=== PATIENT | female | born 1990 | race Caucasian/White ===

== ENCOUNTER 2019-09-23 09:58 | Outpatient (CLI) | payer OTHER, SELFPAY ==
--- NOTE | ~2019-09-23 | US_ITS ---
EXAMINATION: US OB <= 14 weeks fetus DATE: 09/23/2019 10:50 INDICATION: Left sided pelvic cramping, first trimester TECHNIQUE: Real-time pelvic transabdominal and transvaginal ultrasound was performed. COMPARISON: None. FINDINGS: The uterus measures 6.8 x 3.1 x 3.9 cm. No intrauterine gestational sac is identified. The endometrial complex measures 8 mm. The right ovary measures 2.5 x 1.6 x 2.2 cm. The left ovary measu res 2.5 x 1.7 x 2.3 cm. There is normal vascular flow in the ovaries. There is no free fluid in the p viki. IMPRESSION: 1. of unknown location. Although no intrauterine gestational sac is seen, this may be due t o early gestation. If the patient is clinically stable, recommend followup with serial beta-hCG and u ltrasound. Reviewed, dictated and finalized at location A. IMPRESSION: 1. of unknown location. Although no intrauterine gestational sac is s een, this may be due to early gestation. If the patient is clinically stable, r ecommend followup with serial beta-hCG and ultrasound.
== END 2019-09-23 09:59 | disposition home or self-care (01) ==
LOC: ANHIMG 10:04
PROVIDERS: PCP Family Medicine; Visit Provider Obstetrics & Gynecology
DX: O26.899 Other specified pregnancy related conditions, unspecified trimester (principal); Z3A.00 Weeks of gestation of pregnancy not specified
CPT/HCPCS: 76801

== ENCOUNTER → 2019-12-08 15:49 | Outpatient (CLI) | payer OTHER, SELFPAY ==
--- NOTE | ~2019-12-08 | US_ITS ---
EXAMINATION: US OB transvaginal EXAM DATE: 12/08/2019 16:13 INDICATION: History of SAB subarachnoid bleed. Dating. 1st trimester. TECHNIQUE: Pelvic obstetrical transvaginal sonogram was performed by a technologist. There are mult iple grayscale and Doppler images available for interpretation. Comparison is made to prior examinati on from 09/23/2019. FINDINGS: Uterus measures 8.4 x 4.6 x 5.2 cm. There is intrauterine gestation sac. pole with heart rate confirmed at 127 beats per minute. The 7 mm crown-rump length corresponds to estimated ge stational age by ultrasound of 6 weeks 4 days, estimated date of confinement 07/29/2020. Yolk sac is identified. There is no sonographic evidence of subchorionic hemorrhage. Right ovary probably has the corpus luteal cyst. Both are morphologically normal. IMPRESSION: Live intrauterine gestation, age by ultrasound 6 weeks 4 days. Reviewed, dictated and finalized at location A.
== END ==
PROVIDERS: PCP Family Medicine; Visit Provider Obstetrics & Gynecology
DX: O26.21 Pregnancy care for patient with recurrent pregnancy loss, first trimester (principal); Z3A.01 Less than 8 weeks gestation of pregnancy
CPT/HCPCS: 76817

== ENCOUNTER → 2019-12-24 15:24 | Outpatient (CLI) | payer OTHER, SELFPAY ==
--- NOTE | ~2019-12-24 | US_ITS ---
EXAMINATION: US OB <= 14 weeks fetus DATE: 12/24/2019 15:49 INDICATION: Establish dating of during first trimester. TECHNIQUE: Real-time pelvic ultrasound utilizing transabdominal probe was performed. The [facility] radiologist was not present for the study. COMPARISON: 12/08/2019 FINDINGS: The uterus measures 10.5 x 5.1 x 7.3 cm. There is an intrauterine gestational sac. A yolk sac and fe jluis pole are identified. The crown rump length measures 2.1 cm, which correlates with an estimated ge stational age of 8 weeks and 5 days. heart motion is identified measuring 164 beats per minute (bpm) by M-mode Doppler. The right ovary measures 3.9 x 2.2 x 3.2 cm. The left ovary measures 2.2 x 1.9 x 3.5 cm. There is no free fluid in the pelvis. IMPRESSION: 1. Single living fetus with heart rate of 164 bpm. 2. [place]-rump length of 2.1 cm which is concordant within 1 day of previously estimated gestational a ge of 8 weeks and 6 days with estimated date of delivery (CELENA) of 07/30/2020. Reviewed, dictated and finalized at location A. 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 Single living fetus with heart rate of 164 bpm. 2. [place]-rump length of 2.1 cm which is concordant within 1 day of previously e stimated gestational age of 8 weeks and 6 days with estimated date of delivery (CELENA) of 07/30/2020.
== END ==
PROVIDERS: Visit Provider Obstetrics & Gynecology
DX: Z32.01 Encounter for pregnancy test, result positive (principal); Z3A.08 8 weeks gestation of pregnancy
CPT/HCPCS: 76801

== ENCOUNTER → 2020-02-23 10:12 | Outpatient (CLI) | payer OTHER, SELFPAY ==
--- NOTE | ~2020-02-23 | US_ITS ---
EXAMINATION: US OB >= 14 weeks Fetus DATE: 02/23/2020 10:59 INDICATION: survey TECHNIQUE: Multiple obstetric sonographic images performed. FINDINGS: Comparison to multiple prior studies sequentially, with oldest reviewed study dated 2019. There is a single living fetus in variable presentation. The placenta is covering the cervical os. P lacenta is anterior. Amniotic fluid volume is subjectively normal. cardiac activity and movement is noted with a heart rate of 150 beats per minute. The following anatomy was identified as normal: 3 vessel cord cord insertion kidneys urinary bladder stomach spine diaphragm ventricles cisterna magna cerebellum 4 chamber heart not adequately visualized. The following biometric data were obtained: BPD: 41mm corresponds to gestational age 18 weeks 3 days. Head circumference: 158 mm corresponds to gestational age 18 weeks 4 days. Abdominal circumference: 126 mm corresponds to gestational age 18 weeks 1 days. Femur length: 25 mm corresponds to gestational age 17 weeks 5 days. Head circumference to abdominal circumference ratio: 1.25 (normal range for expected gestational age is 1.08-1.27). Estimated weight: 220 grams +/- 33 grams using Hadlock method. IMPRESSION: 1: Single living intrauterine with an estimated gestational age of 17weeks 4days by initial ultrasound measurements, with an EDC of 07/29/2020 in variable presentation. 2. survey limited for evaluation of four-chamber heart. Otherwise, unremarkable survey. 3: Placenta previa. Recommend attention to placenta on subsequent examinations. Reviewed, dictated and finalized at location A. FUELER IMPRESSION: 1: Single living intrauterine with an estimated gestational age of 17 weeks 4days by initial ultrasound measurements, with an EDC of 07/29/2020 in fernando iable presentation. 2. survey limited for evaluation of four-chamber heart. Otherwise, unrem arkable survey. 3: Placenta previa. Recommend attention to placenta on subsequent examinations.
== END ==
PROVIDERS: Visit Provider Obstetrics & Gynecology
DX: Z34.92 Encounter for supervision of normal pregnancy, unspecified, second trimester (principal); Z3A.17 17 weeks gestation of pregnancy
CPT/HCPCS: 76805

== ENCOUNTER 2020-03-25 15:22 | Outpatient (CLI) | payer OTHER, SELFPAY ==
--- NOTE | ~2020-03-25 | US_ITS ---
US OB limited 03/25/2020 15:45 Indication: Placenta previa. Incomplete survey previously. Procedure: High-resolution transabdominal limited obstetrical ultrasound Comparison: Ultrasound dated 02/23/2020 Findings: There is a single living intrauterine in vertex presentation. heart rate is 165 bpm. Placenta is anterior without previa. Placental margin is 6.1 cm to the cervix. Amniotic flu id is subjectively normal. Limited survey demonstrates a normal four-chamber heart and ventricular ou tflow tracts. Impression: 1: Single living intrauterine in vertex presentation. 2: Unremarkable limited survey. Reviewed, dictated and finalized at location A. [employer] Impression: 1: Single living intrauterine in vertex presentation. 2: Unremarkable limited survey.
== END 2020-03-25 15:23 ==
PROVIDERS: Visit Provider Obstetrics & Gynecology
DX: O44.40 Low lying placenta NOS or without hemorrhage, unspecified trimester (principal); Z3A.00 Weeks of gestation of pregnancy not specified
CPT/HCPCS: 76815

== ENCOUNTER → 2020-06-24 13:17 | Outpatient (CLI) | payer OTHER, SELFPAY ==
--- NOTE | ~2020-06-24 | US_ITS ---
EXAMINATION: US OB follow up EXAM DATE: 06/24/2020 13:52 INDICATION: Size greater than dates. 3rd trimester. TECHNIQUE: Pelvic obstetrical transabdominal sonogram was performed by a technologist. There are mu ltiple grayscale and Doppler images available for interpretation. FINDINGS: There is a single fetus identified in vertex presentation with a heart rate of 133 beats pe r minute. The placenta is located in the anterior position. There is no sonographic evidence of retr oplacental hemorrhage identified. The amniotic fluid index is 13.7 centimeters, which is normal. BIOMETRIC DATA: Biparietal diameter (BPD): 9.4 cm ----------------> 38 weeks 3 days. Head circumference (HC): 34.2 cm ----------------> 39 weeks 3 days. Abdominal circumference (AC): 33.9 cm ----------> 37 weeks 5 days. Femur length (FL): 6.9 cm --------------------------> 35 weeks 2 days. These measurements are concordant. HC/AC ratio is 1.01 (The 5th -- 95th percentile range is 0.90-1.05. Estimated weight is 3206 g +/- 481 g. This is the 97th percentile when the currently reported clinical gestation age 35 weeks 0 days, clinical estimated date of delivery (CELENA-OPE) 07/29/2020 is us ed. estimated gestational age based on measurements from this exam is 37 weeks 5 days, with an estimated date of delivery (CELENA-AUA) 07/10/2020. IMPRESSION: 1. Single fetus in vertex presentation with heart rate 133 beats per minute. 2. Estimated weight of 3206 grams, 97th percentile using the currently reported clinical gesta tion age of 35 weeks 0 days, CELENA(OPE) 07/29/2020. Concordant measurements; large for gestational age. 3. Normal CHARMAINE 13.7 cm. Reviewed, dictated and finalized at location B. IMPRESSION: 1. Single fetus in vertex presentation with heart rate 133 beats per minute. 2. Estimated weight of 3206 grams, 97th percentile using the currently r eported clinical gestation age of 35 weeks 0 days, CELENA(OPE) 07/29/2020. [place] ant measurements; large for gestational age. 3. Normal CHARMAINE 13.7 cm.
== END ==
PROVIDERS: Visit Provider Obstetrics & Gynecology
DX: O36.63X0 Maternal care for excessive fetal growth, third trimester, not applicable or unspecified (principal); Z3A.35 35 weeks gestation of pregnancy
CPT/HCPCS: 76816

== ENCOUNTER 2020-07-11 10:45 | Emergency (ER) | payer OTHER, SELFPAY ==
[2020-07-11 10:53] VITALS: BP 155/96; PULSE 102; RESP 18; TEMP 36.2; O2SAT 99
--- NOTE | 2020-07-11 11:29 | ED.GENADULT ---
HPI - General Adult General Chief complaint: Upper Respiratory Infection Stated complaint: Sore Throat Time Seen by Provider: 07/11/20 11:29 Source: patient and RN notes reviewed Mode of arrival: ambulatory Limitations: no limitations History of Present Illness HPI narrative: 30-year-old 37 weeks gestation female presents with complaints of sore throat, cough, bilateral otalgia, and upper respiratory infection for the past 6 days. Traci reports increasing symptoms daily and awakening today with left eye matted together. Robitussin, cough drops, and nasal spray without relief. No high fevers, drooling, neck or throat swelling. Pain is bilateral. Hurts to swallow. Exacerbation factors consist of eating and drinking. Coughing without chest congestion. Rhinorrhea and nasal congestion. No voice change. No nausea, vomiting, or abdominal pain. Tolerating liquids well. Denies chills, dyspnea, difficulty swallowing, jaw pain, dental pain, facial pain, foreign body sensation, and rash. Remains active. The patient reports she was diagnosed with COVID-08 January 2020. The patient reports she received 2 Pfizer COVID-19 vaccines. The patient reports she tested NEGATIVE for COVID-19 on June,. The patient reports she is not waiting for the results of a COVID-19 lab test. The patient reports she do not have any loss of taste or smell, and diarrhea. Denies recent traveling. Denies concerns for COVID-19 or exposures. At this time, patient is not suspected of having COVID-19. Complaints of left eye redness, irritation, some burning, and itching upon awaken this morning. Slightly matted. No pain. No copious drainage. Exacerbating factors is opening eye and light. Relieving factors is closing eyes. Wears glasses. No blurred vision, double vision, sensation of foreign body, or pain of eye with movement. Some parts of this dictation were generated by voice recognition software and may contain typographical and/or grammatical inaccuracies. Related Data Home Medications Medication Instructions Recorded Confirmed prenat.vits,kaylin,[id number] 1 tablet PO HS 07/05/20 07/11/20 [ #2] Allergies Allergy/AdvReac Type Severity Reaction Status Date / Time No Known Allergies Allergy Unknown Verified 07/05/20 14:27 Review of Systems Review of Systems: Narrative: CONSTITUTIONAL: Denies fever, chills, sweats. EYES: Denies visual changes, discharge. Complaints of left eye redness, irritation, matted, and itching ENT: Complains of rhinorrhea, otalgia, sore throat, congestion. CARDIOVASCULAR: Denies chest pain, palpitations, edema. RESPIRATORY: Denies dyspnea, wheezing. Complains of cough, intermittent productive green phlegm. GASTROINTESTINAL: Denies abdominal pain, nausea, vomiting, diarrhea. GENITOURINARY: Denies dysuria, hematuria, abnormal discharge. SKIN: Denies rash or itching. MUSCULOSKELETAL: Denies acute back pain, joint pain, or myalgia. NEUROLOGIC: Denies numbness or focal weakness. PSYCHIATRIC: Denies anxiety or depression. All systems reviewed & are unremarkable except as noted in HPI and below. [facility] Past Medical History Medical History (Updated 07/18/20 @ 15:37 by TERESE Roberto) COVID-19 12/2019 Ex-smoker for more than 1 year Family history of cardiac disorder in father Situational anxiety Umbilical hernia Surgical History Surgical History (Updated 07/11/20 @ 11:53 by TERESE Roberto) History of cholecystectomy History of hernia surgery Family History Family History Father Acute myocardial infarction Mother Breast cancer in female Grandparent Breast cancer in female Acute myocardial infarction Cancer Diabetes mellitus Other Patient's father is Social History Social History (Updated 07/11/20 @ 11:54 by TERESE Roberto) Smoking status: Former smoker Tobacco
[2020-07-11 12:11] VITALS: BP 137/87
== END 2020-07-11 12:06 | disposition home or self-care (01) ==
PROVIDERS: Emergency Provider Nurse Practitioner Family; PCP Family Medicine
DX: O99.513 Diseases of the respiratory system complicating pregnancy, third trimester (principal); Z3A.37 37 weeks gestation of pregnancy; J00 Acute nasopharyngitis [common cold]; J01.90 Acute sinusitis, unspecified; O99.891 Other specified diseases and conditions complicating pregnancy; H10.32 Unspecified acute conjunctivitis, left eye; Z20.822 Contact with and (suspected) exposure to COVID-19; Z87.891 Personal history of nicotine dependence; Z86.16 Personal history of COVID-19
CPT/HCPCS: 87081; 87880; 99213; G0463

== ENCOUNTER 2020-07-21 05:59 | Inpatient (IN) | payer OTHER, SELFPAY ==
[2020-07-21] VITALS (187 sets, daily range): BP systolic 85–159; BP diastolic 52–106; PULSE 73–135; TEMP 36–36.7; O2SAT 98–100
[2020-07-21] MEDS: LACTATED RINGERS 1,000 ML 125 ML IV CONT ×4 (06:40→20:09)
--- NOTE | 2020-07-21 06:41 | WPDANESEPPF ---
Anes - Initial Pre Proc Eval Procedure: labor epidural Date/Time: 07/21/20 06:41 Surgeon: Mohit Gaona MD Pre Op Diagnosis: labor pain Pre Op Diagnosis: IOL Patient Data Age: 30 Gender: F Height: Weight: Last Vital Signs Pulse 112 H 07/21/20 06:30 BP 134/81 07/21/20 06:30 Allergies Allergy/AdvReac Type Severity Reaction Status Date / Time No Known Allergies Allergy Unknown Verified 07/05/20 14:27 Home Medications Medication Instructions Recorded Confirmed Type prenat.vits,kaylin,[id number] 1 tablet PO HS 07/05/20 07/11/20 History [ #2] cetirizine [Zyrtec] 10 mg PO DAILY 60 Days #60 tablet 07/11/20 Rx polymyxin B sulf-trimethoprim 1 drop LEFT EYE QID 7 Days #10 ml 07/11/20 Rx Patient hx anesthesia problems: none Family hx anesthesia problems: none PMFSH Past Medical History Medical History (Updated 07/19/20 @ 00:00 by Brannon Gudino) COVID-19 12/2019 Ex-smoker for more than 1 year Family history of cardiac disorder in father Situational anxiety Umbilical hernia Surgical History Surgical History (Updated 07/11/20 @ 11:53 by TERESE Roberto) History of cholecystectomy History of hernia surgery Family History Family History Father Acute myocardial infarction Mother Breast cancer in female Grandparent Breast cancer in female Acute myocardial infarction Cancer Diabetes mellitus Other Patient's father is Social History Social History (Updated 07/11/20 @ 11:54 by TERESE Roberto) Smoking status: Former smoker Tobacco type: cigarettes Second hand tobacco smoke exposure: No Smoking end date: 02/19/18 Alcohol intake: current Substance use: never Gender identity (if verbalized by the patient): Female Spiritual care concerns: No Anes - Eval Final PreProcedure Day of Procedure 07/21/20 06:41 Patient weight: morbidly obese ASA classification: III Anesthesia type and monitoring: regional epidural Informed Consent: The patient's anesthetic plan and its attendant risks and benefits were discussed with the patient/family/POA. Questions were solicited and answers provided to the satisfaction of the patient/family/POA.
[2020-07-21] MEDS: OXYTOCIN 30 UNITS/NS 500 ML 30 UNITS/500 ML BAG IV CONT (06:50)
[2020-07-21 07:38] LABS: Basophils Percent Auto 0.2 % (0.2-1.2); Eosinophils Absolute Auto 0.1 K/mm3 (0-0.3); Eosinophils Percent Auto 0.9 % (0-4.4); Immature Granulocyte Absolute 0.12 K/mm3 (0.00-0.031); Lymphocytes Absolute Auto 1.85 K/mm3 (0.9-3.2); Lymphocytes Percent Auto 14.8 % (18.3-44.2); Mean Corpuscular HGB Conc 33.3 g/dl (32-36); Mean Corpuscular Volume 90.1 fl (80-100); Mean Platelet Volume 11.5 fl (7.4-10.4); Monocytes Absolute Auto 0.8 K/mm3 (0.1-0.6); Monocytes Percent Auto 6.3 % (2.6-8.5); Neutrophils Absolute Auto 9.6 K/mm3 (1.3-6.7); Neutrophils Percent Auto 76.8 % (45.5-73.1); Platelet Count Result 219 k/mm3 (150-375); Red Blood Count 4.33 M/mm3 (4.2-5.4); Red Cell Distribution Width 12.6 % (11.5-14.5); White Blood Count 12.5 K/mm3 (4.5-10.0)
--- NOTE | 2020-07-21 08:23 | P.HP_ITS ---
Obstetrics - Admit Note Admission Note: record reviewed. No pertinent additions to the history and/or any subsequent changes in the physical findings that are not consistent with the expected course of the were found. AROm clear fluid 1/-2 Additions to the history and/or subsequent changes in the physical findings emilee logan. None.
[2020-07-21 18:23] LABS: Rapid Plasma Reagin Non-Reactive (NonReactive)
[2020-07-22] VITALS (57 sets, daily range): BP systolic 85–146; BP diastolic 58–110; PULSE 74–144; RESP 17–20; TEMP 36.5–37.2; O2SAT 86–100
[2020-07-22] MEDS: AMPICILLIN 2 GM/NS 100 ML 2 GM/100 ML BAG IVPB (02:24)
--- NOTE | 2020-07-22 04:04 | PM.OBPRVD ---
OB - Delivery Note Procedure Delivery date: 07/22/20 Procedure: events: Labor Induction Intrapartal events: None Induction method: AROM and per pitocin protocol Delivery monitor: external FHT, external uterine, internal FHT and internal uterine Route of delivery: Laceration Description: Vaginal - 2nd Degree Delivery repair: vicryl Specimen: No Quantitative Blood Loss (ml): 180 Anesthesia type: Epidural Disposition: floor Baby Date of : 07/22/20 Time of : 03:29 Weeks of gestation at delivery: 39 gender: Male Weight (pounds): 7 Weight (ounces): 15 presentation: vertex position: Left Occiput Anterior Placenta delivery description: Spontaneous cord vessel description: 3 Vessels score one minute: 9 score five minutes: 9
[2020-07-22] MEDS: OXYTOCIN 30 UNITS/NS 500 ML 30 UNITS/500 ML BAG 125 UNITS IV CONT (04:05)
--- NOTE | 2020-07-22 04:07 | PM.OBDSVD ---
DS: Admitting Diagnosis Admitting Diagnosis Admitting Diagnosis: induction of labor DS: Discharge Diagnosis Discharge Diagnosis (1) (normal spontaneous vaginal delivery): Code(s): O80 - Encounter for full-term uncomplicated delivery Status: Acute OB - DS: Summary OB Procedures : None OB Procedures Intrapartum: Spontaneous Vag Delivery OB Procedures: : None Time Spent with Patient Time attestation: Total time spent providing and/or coordinating discharge services: DS: Data Data Completed and Pending Labs on day of discharge: Labs from last 24 hours 07/21/20 07/21/20 07/21/20 07:00 07:00 07:00 WBC 12.5 H RBC 4.33 Hgb 13.0 Hct 39.0 MCV 90.1 MCH 30.0 MCHC 33.3 RDW 12.6 Plt Count 219 MPV 11.5 H Immature Gran % (Auto) 1.0 H Neut % (Auto) 76.8 H Lymph % (Auto) 14.8 L [place] % (Auto) 6.3 Eos % (Auto) 0.9 Baso % (Auto) 0.2 Lymph # (Auto) 1.85 [place] # (Auto) 0.8 H Eos # (Auto) 0.1 Baso # (Auto) 0.0 Abs Immat Gran (auto) 0.12 H Absolute Neuts (auto) 9.6 H Absolute Nucleated RBC 0.0 Nucleated RBC % 0.0 RPR Non-reactive Blood Type A Positive Antibody Screen Negative Discharge Plan Discharge Attending physician on discharge: Mohit Gaona Discharging Clinician: Mohit Gaona Patient Disposition: Home, Self-Care Activity: may shower Diet: as tolerated Discharge Instructions: Education: Mom and Baby Guide and Preeclampsia Handout Given to: Mother Follow-Up: Call your delivering provider's office for an appointment to be seen in: 6 Weeks Mom and baby should come to the [facility] for the follow-up appointment. Appointment Date/Time: July 26, 2020 at 9:00 am What to expect at your follow-up visit: Physical Assessment Call [phone] if you are unable to keep your appointment time. BREAST CARE: * Wear a snug supportive bra. * For engorgement discomfort: Breast Feeding: * Apply warm moist washcloths * Express milk as needed to relieve engorgement * Wear loose clothing Bottle Feeding: * May apply ice packs * For sore nipples: * Identify correct latch-on * Apply warm moist washcloths before and after nursing * Air dry nipples after nursing * May apply Lansinoh cream to nipples EPISIOTOMY/PERINEAL CARE: * Until bleeding stops, use your kimberly bottle after urinating * Change your pad frequently throughout the day * You may take sitz baths several times a day (fill your bathtub with warm water and soak for 20 minutes.) Do NOT bathe in the water * No tub baths until seen by your physician - You may shower ACTIVITY: * Rest as much as possible. * Do not exercise or lift anything heavier than your baby (such as laundry or other children.) * Avoid stairs or driving as much as possible. * Do not put anything into the vagina. No douching, tampons, or sexual activity until seen by physician. NOTIFY PHYSICIAN IF YOU HAVE ANY QUESTIONS OR IF ANY OF THE FOLLOWING SYMPTOMS OCCUR: * If your episiotomy becomes red, swollen, or more painful than what you have experienced in the hospital. * If your vaginal bleeding becomes foul smelling. * If your vaginal bleeding becomes more heavy than a period or if your bleeding changes from pink to bright red. However, you may pass an occasional walnut-sized clot once or twice for the first week . * If you experience a sharp, shooting pain in you calves. * If you discover a hard, reddened area on your breast or if you experience flu-like symptoms. DIET: * Eat regular, well-balanced meals. * Drink plenty of fluids daily. If , drink to thirst. Stand Alone Forms: General Discharge Information Follow-up/Referrals: Mohit Gaona MD [Physician] - Discharge Medications: Continued polymyxin B sulf-trimethoprim 10
[2020-07-22] MEDS: IBUPROFEN 600 MG TABLET PO ×3 (06:30→19:26)
[2020-07-22] MEDS: WITCH HAZEL 40 PADS 1 PAD TOPICAL (06:31)
--- NOTE | 2020-07-22 09:00 | PC.NURSE ---
Mother called out for assist with feeding. Mother reports infant is sleepy and making weak attempts to latch. He was latched and fed causing mother nipple pain. Left nipple has blisters and bleeding is noted. Nipple care reviewed of lanolin after feedings, warm compresses and gel pads as needed. Reviewed feeding cues, frequencies, duration of feedings, feeding elimination flow sheet, and signs of adequate intake. Demonstrated stimulation techniques to wake for feeding. Assisted with to breast. Reviewed positioning/alignment in cross cradle, holding breast in ?U? hold and guided asymmetrical latch on. Several attempts made is unable to draw nipple in deeply to latch correctly. Offered and explained the nipple shield, mother is willing to attempt latch using shield. Discussed nipple shield precautions and possible complications. Instructions given on application and cleaning of shield. . Patient able to return demonstration on proper application of shield. Discussed the need to initiate pumping if continues to nurse with the shield. Patient verbalizes understanding. With shield in place was able to latch and draw nipple in. struggles to maintain deep latch. Infant nursed eagerly with bursts of steady draws and occasional swallowing noted. Reviewed signs of a correct latch, effective nursing and suck swallow ratio. would slip to shallow latch, mother reports tenderness. Demonstrated how to adjust latch more deeply while feeding. Mother reports she can feel change in latch and has no tenderness. Suggested mother stimulate while feeding to increase stimulate, increase intake and to assist with maintaining deep latch. Mother will begin supplementation after this feeding and will pump after each feeding using the nipple shield or each attempt.
--- NOTE | 2020-07-22 12:30 | PC.NURSE ---
Mother called out for assist with feeding. Demonstrated stimulation techniques to wake for feeding. Assisted with to breast using nipple shield. Reviewed positioning/alignment in cross cradle, holding breast in ?U? hold and guided asymmetrical latch on. Several attempts made infant is unable to draw nipple in deeply to latch correctly. With shield in place infant was able to latch and draw nipple in. Infant struggles to maintain deep latch. Infant nursed eagerly with bursts of steady draws and occasional swallowing noted followed with long pausing. Reviewed signs of a correct latch, effective nursing and suck swallow ratio. Infant would slip to shallow latch, mother reports tenderness. Demonstrated how to adjust latch more deeply while feeding. Mother reports she can feel change in latch and has no tenderness. Suggested mother stimulate while feeding to increase stimulate, increase intake and to assist with maintaining deep latch. Mother will supplementation after this feeding and will pump after each feeding using the nipple shield or each attempt.
[2020-07-22] MEDS: ACETAMINOPHEN 325 MG TABLET 650 MG PO (17:51)
[2020-07-23] MEDS: IBUPROFEN 600 MG TABLET PO ×3 (02:00→20:45)
[2020-07-23 05:22] LABS: Hemoglobin 10.8 g/dL (12.0-15.0)
[2020-07-23 06:45] VITALS: BP 133/96; PULSE 100; RESP 18; TEMP 36.5
[2020-07-23] MEDS: DOCUSATE SODIUM 100 MG CAPSULE PO (06:49)
[2020-07-23] MEDS: MULTIVIT/MIN/PREN/FOL AC/IRON TABLET 1 TAB PO (06:49)
--- NOTE | 2020-07-23 10:31 | WPDANLDPN2 ---
Anes-Prog Note L&D Date/Time: 07/23/20 10:31 Comfortable throughout: labor and delivery Neuraxial method: epidural Epidural/Spinal procedure site: clean & non-tender Neuro status: Neuro function grossly intact. Cardiovascular status: normal Respiratory status: normal Airway patency: baseline Mental status: baseline Post-Op hydration status: normal Vital Signs: Last Vital Signs Temp 36.5 C 07/23/20 06:45 Pulse 100 07/23/20 06:45 Resp 18 07/23/20 06:45 BP 133/96 H 07/23/20 06:45 Pulse Ox 100 07/22/20 16:00 Pain score (VAS): 02/28 Post-procedural complaints: none Patient feedback: Patient satisfied with anesthetic care.
[2020-07-23] MEDS: ACETAMINOPHEN 325 MG TABLET 650 MG PO (13:39)
[2020-07-23 19:15] VITALS: BP 130/70; PULSE 95; RESP 17; TEMP 36.9
[2020-07-24] MEDS: ACETAMINOPHEN 325 MG TABLET 650 MG PO (05:47)
[2020-07-24] MEDS: IBUPROFEN 600 MG TABLET PO (05:47)
[2020-07-24 07:20] VITALS: BP 133/90; PULSE 96; RESP 20; TEMP 36.4
--- NOTE | 2020-07-24 09:00 | PC.NURSE ---
Patient viewed the discharge video Mother & Baby Care, The First Two Weeks . Patient was given the opportunity and encouraged to ask questions. Patient verbalized understanding of information shared and has been given the mother/baby guide for home reference.
[2020-07-24] MEDS: MULTIVIT/MIN/PREN/FOL AC/IRON TABLET 1 TAB PO (09:21)
--- NOTE | 2020-07-24 12:31 | P.PNOB_ITS ---
OB - PN: Subj Subjective Date/time seen: 07/24/20 12:31 doing well no complaints OB - PN: Obj Data Labs CBC & Chem 7: 07/23/20 04:45 OB - PN A/P Assessment and Plan (1) (normal spontaneous vaginal delivery): Code(s): O80 - Encounter for full-term uncomplicated delivery Status: Acute Assessment and Plan: continue with pp care. Time Spent With Patient Time: Total time spent is greater than 50% in coordination of care (as document ed) at patient's floor/unit and/or counseling patient: Exam Narrative: Exam Narrative: ff below umbilicus
[2020-07-26 09:24] VITALS: BP 141/83; PULSE 91; RESP 20; TEMP 36.8; O2SAT 100
== END 2020-07-24 12:47 | disposition home or self-care (01) | DRG 807 ==
LOC: ANHLDR 06:02 → ANHOB2 07-22 07:05
PROVIDERS: Admitting Provider Obstetrics & Gynecology; PCP Family Medicine; Visit Provider Obstetrics & Gynecology
DX: O42.92 Full-term premature rupture of membranes, unspecified as to length of time between rupture and onset of labor (principal); Z37.0 Single live birth; O70.1 Second degree perineal laceration during delivery; O76 Abnormality in fetal heart rate and rhythm complicating labor and delivery; Z3A.39 39 weeks gestation of pregnancy
CPT/HCPCS: 36415; 85014; 85018; 85025; 86592; 86850; 86900; 86901; A9270; J0290; J2590; J2795; J7120

== ENCOUNTER 2021-06-30 01:43 | Day surgery (SDC) | payer BC, SELFPAY ==
[2021-06-29 16:35] VITALS: BMI 40.7
--- NOTE | 2021-06-29 16:46 | PC.NURSE ---
Report to the Outpatient Waiting Room, entrance under the green pavilion located off [facility], at time 0800 on date 06/30/21. OR Time: 1000____. - You and your visitor will be asked a series of questions to screen for COVID 19 for your protection. - Only one visitor is allowed at this time. - The patient visitor is requested to leave or wait in car when not with patient. - A mask is required within the hospital. Patients may have clear liquids (water, carbonated beverages, clear teas, apple juice) until 3 hours prior to surgery with a maximum of 20 ounces. - No food from midnight until time of surgery - Infants may have breast milk until 4 hours before surgery, infant formula 6 hours prior to surgery. - Children will be allowed to drink immediately following surgery. If applicable, please bring a bottle or sippy cup to assist with drinking. Juice, water, soda, and popsicles are readily available. For infants on formula, please bring formula the day of surgery. Pacifiers are allowed. Take the following medications with a SIP of water the morning of surgery: alprazolam Medications to discontinue per physician Date to take last dose Please no make-up, nail german, hairspray, perfume, deodorant, or body powder the day of surgery. No jewelry (including any body piercings) or valuables the day of surgery, leave them at home. Please take a shower or bath the night before, or the morning of, surgery with an antibacterial soap. Wear comfortable, loose fitting clothing. Children are encouraged to wear pajamas. - Jewelry must be removed prior to entering the operating room. Rings and piercings that are not removed may be cut off. - The hospital will not accept responsibility for valuables. - Please leave all valuables, including medications, at home the day of surgery. If you are going home after surgery, a licensed entry level truck driver must drive you home. - NO public transportation without another adult. - We recommend that an adult stay with you for 24 hours following discharge. - We also recommend that you do not drive, make important decision, drink alcoholic beverages, or take any drugs that were not prescribed by your health care provider for at least 24 hours after your discharge time. For Pediatric surgeries, we recommend two adults accompany the child home (only one inside the building at this time). Follow any additional instructions given to you from your surgeon. If you or anyone in your household have experienced Covid symptoms in the past week, please notify your surgeon or the nurse liaison at the phone number below for possible testing. Telephone instructions given to Traci Aranda and asked if any additional questions and then verbalized understanding. Patient advised to call surgeon office or pre surgery nurse liaison [phone] if any additional questions.
--- NOTE | 2021-06-30 07:40 | PM.IMHP ---
H&P: HPI History of Present Illness Date/Time: 06/30/21 07:40 31 yo for suction d and c . retained placenta first trimester. Chief Complaint: first trimester sab Review of Systems Review of Systems: All systems reviewed & are unremarkable except as noted in HPI and below PMFSH Past Medical History Medical History COVID-19 12/2019 Ex-smoker for more than 1 year Family history of cardiac disorder in father (normal spontaneous vaginal delivery) Situational anxiety Umbilical hernia Surgical History Surgical History History of cholecystectomy History of hernia surgery Family History Family History Father Acute myocardial infarction Mother Breast cancer in female Grandparent Breast cancer in female Acute myocardial infarction Cancer Diabetes mellitus Other Patient's father is Social History Social History Smoking packs per day: 0.5 Smoking cigarettes per day: 10.0 Years smoked: 12 Smoking pack-years: 6.00 Smoking status: Former smoker Tobacco type: cigarettes Second hand tobacco smoke exposure: No Smoking end date: 02/19/18 Alcohol intake: never Substance use: never Substance use type: does not use Last use: 02/19/2018 Living arrangements: with family Gender identity (if verbalized by the patient): Female Sexual Orientation (if Verbalized by the Patient): Straight or Heterosexual Spiritual care concerns: No Meds Home Medications and Allergies Home Medications Medication Instructions Recorded Confirmed Type alprazolam 0.5 mg tablet 0.5 mg PO QHS PRN #30 tablet 06/19/21 06/29/21 Rx Allergies Allergy/AdvReac Type Severity Reaction Status Date / Time No Known Allergies Allergy Unknown Verified 11/10/20 11:41 Exam Const: General: no acute distress Eyes: General: appearance normal, both eyes and all related structures Neck: Neck: supple and no JVD Thyroid: thyroid normal Resp: Effort & Inspection: normal respiratory effort Auscultation: clear to auscultation bilaterally Cardio: Rate: regular rate Rhythm: regular rhythm GI: Inspection: non-distended GI Palp: Yes Soft to palpation, No Tenderness to palpation present (GI) and No Guarding due to palpation present (GI) Auscultation: normal bowel sounds : External Female Exam: normal external appearance Speculum Exam - Vagina: normal appearance of the vagina Speculum Exam - Cervix: Cervical os closed (open) Bimanual exam- vagina & uterus: enlarged Skin: General skin exam: no rashes or lesions noted Extrem: General: normal to inspection and no edema Psych: Mental Status: mental status grossly normal Affect: normal affect Assessment and Plan Additional Plan imp: incomplete ab plan: suction d and c
--- NOTE | 2021-06-30 07:54 | WPDHPUPDATE1 ---
History and Physical Update Update Date/Time: 06/30/21 07:54 History and Physical has been reviewed, including an updated exam of the patient. There are NO changes in the patient's condition. Risks, benefits, and alternatives have been discussed and questions answered. Patient agrees to proceed with procedure.
--- NOTE | 2021-06-30 08:45 | P.PNAN_ITS ---
Anes - Initial Pre Proc Eval Procedure: Operation Date: 06/30/21 10:00 Proposed Procedures p Suction Dilation and Curettage - Agustín Brothers MD Date/Time: 06/30/21 08:45 Surgeon: Agustín Brothers MD Pre Op Diagnosis: incomplete ab Patient Data Age: 31 Gender: F Height: 1.7 m Weight: 118 kg Allergies Allergy/AdvReac Type Severity Reaction Status Date / Time No Known Allergies Allergy Unknown Verified 06/30/21 08:12 Home Medications Medication Instructions Recorded Confirmed Type alprazolam 0.5 mg tablet 0.5 mg PO QHS PRN #30 tablet 06/19/21 06/30/21 Rx hydrocodone-acetaminophen 1 tablet PO Q4H PRN #20 tablet 06/30/21 Rx Patient hx anesthesia problems: none Family hx anesthesia problems: none Results Review: All pre-operative results and documents have been reviewed as part of the pre-operative evaluation. [facility] Past Medical History Medical History (Updated 06/30/21 @ 08:46 by Agustín Vidal MD) COVID-19 12/2019 Ex-smoker for more than 1 year Family history of cardiac disorder in father Morbid obesity (normal spontaneous vaginal delivery) Situational anxiety Umbilical hernia Surgical History Surgical History History of cholecystectomy History of hernia surgery Family History Family History Father Acute myocardial infarction Mother Breast cancer in female Grandparent Breast cancer in female Acute myocardial infarction Cancer Diabetes mellitus Other Patient's father is Social History Social History Smoking packs per day: 0.5 Smoking cigarettes per day: 10.0 Years smoked: 12 Smoking pack-years: 6.00 Smoking status: Former smoker Tobacco type: cigarettes Second hand tobacco smoke exposure: No Smoking end date: 02/19/18 Alcohol intake: never Substance use: never Substance use type: does not use Last use: 02/19/2018 Living arrangements: with family Gender identity (if verbalized by the patient): Female Sexual Orientation (if Verbalized by the Patient): Straight or Heterosexual Spiritual care concerns: No Anes - Eval Final PreProcedure Day of Procedure 06/30/21 08:45 Patient weight: morbidly obese Heart: regular rate and rhythm Lungs: clear to auscultation Airway: Mallampati scale class II Neurological: alert and oriented Last oral intake: >/= 8 hours ASA classification: III Emergent: no Anesthetic plan: proceed Anesthesia type and monitoring: general GIVS and standard monitoring Results Review: All pre-operative results and documents have been reviewed as part of the pre-operative evaluation. Informed Consent: The patient's anesthetic plan and its attendant risks and benefits were discussed with the patient/family/POA. Questions were solicited and answers provided to the satisfaction of the patient/family/POA.
[2021-06-30] MEDS: ACETAMINOPHEN 500 MG TABLET 1000 MG PO (08:46)
[2021-06-30 08:49] VITALS: BP 101/65; PULSE 89; RESP 16; TEMP 37.1; O2SAT 99
[2021-06-30 08:59] LABS: Hematocrit 37.6 % (37.0-47.0); Hemoglobin 12.1 g/dL (12.0-15.0)
[2021-06-30] MEDS: LACTATED RINGERS 1,000 ML 30 ML IV CONT (09:01)
[2021-06-30] MEDS: KETOROLAC 15 MG/ML VIAL (*BKC) IV PUSH (10:20)
--- NOTE | 2021-06-30 10:27 | W.PM.PROC2 ---
Procedure Note - Detailed Date of Procedure 06/30/21 Pre-op Diagnosis incomplete ab Post-op Diagnosis Same Procedure Performed Suction dilatation curettage Surgeon Agustín Brothers MD Anesthesia MAC and Local Indications this is a 31-year-old female with an incomplete AB Findings uterus sounded to 10cm. Tissue consistent with retained placenta Description of Procedure patient is prepped draped in the normal sterile fashion placed in dorsal lithotomy position under excellent IV sedation weighted speculum placed posterior fornix vagina. Anterior lip of the cervix grasped with a single-tooth tenaculum 2.5cc 1% xylocaine anesthesia placed at 2, 4, 8, 10:00 a.m. respectively the cervix. Uterus sounded 10cm. Serial dilatation fragment out performed followed by passes the 10. Suction curette removing a moderate amount of tissue the instruments removed and all were accounted for the patient tolerated procedure well all sponge, needle, instrument counts were correct. There were no complications Estimated Blood Loss 25 Drains No Packing No Pathology Yes Complications No immediate complications Condition Stable Disposition PACU
[2021-06-30 10:30] VITALS: BP 101/65; PULSE 108; RESP 20; O2SAT 98
--- NOTE | 2021-06-30 10:34 | SUR.PHASEII ---
1034 - pt is A positive
[2021-06-30 11:00] VITALS: BP 117/71; PULSE 79; RESP 20
[2021-06-30 11:15] VITALS: BP 122/72; PULSE 73; RESP 20
== END 2021-06-30 11:25 | disposition home or self-care (01) ==
PROVIDERS: PCP Family Medicine; Visit Provider Obstetrics & Gynecology
PROC: (CPT 59812; principal; 2021-06-30 10:00)
DX: O03.4 Incomplete spontaneous abortion without complication (principal); Z87.891 Personal history of nicotine dependence
CPT/HCPCS: 59812; 36415; 85014; 85018; 88305; A9270; J1885; J2250; J2704; J3010; J7120

== ENCOUNTER 2022-05-01 06:02 | Inpatient (IN) | payer BC, SELFPAY ==
[2022-05-01] VITALS (136 sets, daily range): BP systolic 65–207; BP diastolic 36–183; PULSE 67–152; RESP 16; TEMP 36.2–36.5; O2SAT 95–100; BMI 43.8
--- NOTE | 2022-05-01 06:34 | LDADM ---
This patient, Traci Aranda, was admitted to Labor/Delivery/Recovery 103 on 05/01/22 at 06:02. Plans for labor, pain management and were discussed with patient. Patient/family oriented to hospital policies and general routines including ID bracelet, bed and alarms, visiting hours, pain management, procedures, bathroom and other care routines, personal items, smoking policy, room service/diet and guest tray routines, security routines, and visiting hours. Patient/Family are encouraged to report perceived risks to care and to ask questions if they do not understand what they are told or what they should do. See OBIX for further documentation.
--- NOTE | 2022-05-01 06:38 | P.PNAN_ITS ---
Anes - Eval Pre Procedure Procedure: labor epidural Date/Time: 05/01/22 06:38 Surgeon: angy Preop Diagnosis: pain during labor Pre Op Diagnosis: Induction of Labor Patient Data Age: 32 Gender: F Height: Weight: Last Vital Signs Pulse 105 H 05/01/22 06:30 BP 138/87 05/01/22 06:30 Allergies Allergy/AdvReac Type Severity Reaction Status Date / Time No Known Allergies Allergy Unknown Verified 04/07/22 13:35 Home Medications Medication Instructions Recorded Confirmed Type No Home Medications 04/07/22 04/07/22 History Patient hx anesthesia problems: none Family hx anesthesia problems: none Results Review: All pre-operative results and documents have been reviewed as part of the pre- operative evaluation. [facility] Past Medical History Medical History COVID-19 12/2019 Ex-smoker for more than 1 year Family history of cardiac disorder in father Morbid obesity (normal spontaneous vaginal delivery) Situational anxiety Umbilical hernia Surgical History Surgical History History of cholecystectomy History of hernia surgery Family History Family History Father Acute myocardial infarction Mother Breast cancer in female Grandparent Breast cancer in female Acute myocardial infarction Cancer Diabetes mellitus Other Patient's father is Social History Social History Smoking packs per day: 0.5 Smoking cigarettes per day: 10.0 Years smoked: 12 Smoking pack-years: 6.00 Smoking status: Former smoker Tobacco type: cigarettes Second hand tobacco smoke exposure: No Smoking end date: 02/19/18 Alcohol intake: never Substance use: never Substance use type: does not use Last use: 02/19/2018 Lack of Transportation: No Lack of Food: Never True Current Housing: I Have Housing Concerned About Future Housing: No Difficulty Paying Gas/Electric Bills: No Difficulty Paying for Meds: No Currently Unemployed: No Education: Bachelor's Degree Difficulty w/ Childcare or Family Care: No Living arrangements: with family Occupation/Education: occupation Gender identity (if verbalized by the patient): Female Sexual Orientation (if Verbalized by the Patient): Straight or Heterosexual Spiritual care concerns: No Agree to blood products: Yes Exam Day of Procedure 05/01/22 06:38
[2022-05-01 06:48] LABS: Basophils Percent Auto 0.3 % (0.2-1.2); Eosinophils Absolute Auto 0.1 K/mm3 (0-0.3); Eosinophils Percent Auto 1.2 % (0-4.4); Hematocrit 39.2 % (37.0-47.0); Immature Granulocyte Absolute 0.05 K/mm3 (0.00-0.031); Immature Granulocyte Percent A 0.4 % (0-0.5); Lymphocytes Absolute Auto 2.36 K/mm3 (0.9-3.2); Lymphocytes Percent Auto 20.6 % (18.3-44.2); Mean Corpuscular HGB Conc 33.2 g/dl (32-36); Mean Corpuscular Hemoglobin 29.4 pg (26-34); Mean Corpuscular Volume 88.7 fl (80-100); Mean Platelet Volume 11.8 fl (7.4-10.4); Monocytes Absolute Auto 0.8 K/mm3 (0.1-0.6); Neutrophils Absolute Auto 8.1 K/mm3 (1.3-6.7); Neutrophils Percent Auto 70.5 % (45.5-73.1); Platelet Count Result 205 k/mm3 (150-375); Red Blood Count 4.42 M/mm3 (4.2-5.4); Red Cell Distribution Width 12.8 % (11.5-14.5); White Blood Count 11.5 K/mm3 (4.5-10.0)
--- NOTE | 2022-05-01 06:55 | PM.IMHP ---
H&P: HPI History of Present Illness Date/Time: 05/01/22 06:55 Chief Complaint: Induction of labor at term Narrative: since 31-year-old 4 para 1021 whose last menstrual period was 07/24/2021, EDC is 05/01/2022, confirmed by 10 week ultrasound, who presents at term for induction of labor. She had favorable cervix. She negative for group B strep. [facility] Past Medical History Medical History COVID-19 12/2019 Ex-smoker for more than 1 year Family history of cardiac disorder in father Morbid obesity (normal spontaneous vaginal delivery) Situational anxiety Umbilical hernia Surgical History Surgical History History of cholecystectomy History of hernia surgery Family History Family History Father Acute myocardial infarction Mother Breast cancer in female Grandparent Breast cancer in female Acute myocardial infarction Cancer Diabetes mellitus Other Patient's father is Social History Social History Smoking packs per day: 0.5 Smoking cigarettes per day: 10.0 Years smoked: 12 Smoking pack-years: 6.00 Smoking status: Never smoker Tobacco type: cigarettes Second hand tobacco smoke exposure: No Smoking end date: 02/19/18 Alcohol intake: never Substance use: never Substance use type: does not use Last use: 02/19/2018 Lack of Transportation: No Lack of Food: Never True Current Housing: I Have Housing Concerned About Future Housing: No Difficulty Paying Gas/Electric Bills: No Difficulty Paying for Meds: No Currently Unemployed: No Education: Associate Degree Difficulty w/ Childcare or Family Care: No Living arrangements: with family Occupation/Education: occupation Gender identity (if verbalized by the patient): Female Sexual Orientation (if Verbalized by the Patient): Straight or Heterosexual Spiritual care concerns: No Agree to blood products: Yes Meds Home Medications and Allergies Home Medications Medication Instructions Recorded Confirmed Type No Home Medications 04/07/22 05/01/22 History Allergies Allergy/AdvReac Type Severity Reaction Status Date / Time No Known Allergies Allergy Unknown Verified 05/01/22 06:41 Vital Signs Vital Signs - 24 hr 05/01/22 06:25 05/01/22 06:30 05/01/22 06:45 Pulse Rate 109 H 105 H 91 Blood Pressure 141/93 H 138/87 141/77 H Oxygen Delivery 05/01/22 06:30 Pulse Rate Blood Pressure Oxygen Delivery Room Air Exam Const: General: cooperative, healthy appearing, comfortable and overweight Orientation/consciousness: oriented to person, oriented to place and oriented to time HENMT: Head: normal to inspection Resp: Effort & Inspection: normal respiratory effort Cardio: Rate: regular rate Rhythm: regular rhythm Heart sounds: S1 normal heart sound present and S2 normal heart sound present GI: Inspection: normal to inspection : External Female Exam: normal external appearance Speculum Exam - Vagina: normal appearance of the vagina Speculum Exam - Cervix: normal appearance of the cervix ( Cervix 3/75/2. AROM clear. FHTs reassuring) Bimanual exam- vagina & uterus: enlarged H&P: Results Labs Labs: Short CBC 05/01/22 Range/Units 06:20 WBC 11.5 H (4.5-10.0) K/mm3 Hgb 13.0 (12.0-15.0) g/dL Hct 39.2 (37.0-47.0) % Plt Count 205 (150-375) k/mm3 Assessment and Plan Assessment and plan (1) Term : Code(s): Z34.90 - Encounter for supervision of normal , unspecified, unspecified trimester Status: Acute Plan medical induction of labor. Spontaneous vaginal delivery expected. She is an epidural candidate
[2022-05-01] MEDS: LACTATED RINGERS 1,000 ML 125 ML IV CONT ×3 (06:57→11:38)
[2022-05-01] MEDS: OXYTOCIN 30 UNITS/NS 500 ML 30 UNITS/500 ML BAG IV CONT (06:58)
[2022-05-01] MEDS: PHENYLEPHRINE 1,000 MCG/10 ML SYRINGE 100 MCG IV PUSH ×5 (10:08→14:20)
[2022-05-01 10:10] LABS: Rapid Plasma Reagin Non-Reactive (NonReactive)
--- NOTE | 2022-05-01 14:48 | PM.OBPRVD ---
OB - Delivery Note Procedure Delivery date: 05/01/22 Procedure: mil Events: Elective Induction of Labor Induction method: AROM Delivery augmentation: Pitocin Delivery monitor: External FHT and Internal Uterine Route of delivery: Episiotomy description: None Laceration Description: None Specimen: No Quantitative Blood Loss (ml): 60 Anesthesia type: Epidural Disposition: Floor [place] Baby Date of : 05/01/22 Time of : 14:41 Weeks of gestation at delivery: 40 presentation: vertex position: Right Occiput Anterior Placenta delivery description: Spontaneous Cord Vessel Description: Nuchal Cord, Loose and Around Body score one minute: 9 score five minutes: 9
[2022-05-01] MEDS: OXYTOCIN 30 UNITS/NS 500 ML 30 UNITS/500 ML BAG 125 UNITS IV CONT (15:12)
[2022-05-01] MEDS: WITCH HAZEL 40 PADS 1 PAD TOPICAL (16:47)
[2022-05-01] MEDS: BENZOCAINE 20% AER SPR (*SP) 56 GM CAN 1 SPRAY TOPICAL (16:47)
--- NOTE | 2022-05-01 17:07 | PC.NURSE ---
Patient transferred to post room #290 via (w/c ). Support person present. Oriented to unit, room, information board, rooming in, admission packet and security measures. Patient verbalizes understanding.
[2022-05-01] MEDS: IBUPROFEN 600 MG TABLET PO (17:39)
[2022-05-01] MEDS: LANOLIN (LANSINOH) 7.5 GM CREAM 1 APPLIC TOPICAL (17:40)
[2022-05-02 05:17] VITALS: BP 119/64; PULSE 94; RESP 16; TEMP 36.4
[2022-05-02 05:31] LABS: Hematocrit 35.4 % (37.0-47.0); Hemoglobin 11.5 g/dL (12.0-15.0)
--- NOTE | 2022-05-02 06:29 | PM.DS ---
DS: Admitting Diagnosis Discharge Date 05/02/2022 Admitting Diagnosis term DS: Discharge Diagnosis Discharge Diagnosis (1) Term : Code(s): Z34.90 - Encounter for supervision of normal , unspecified, unspecified trimester Status: Acute DS: Summary Hospital Course Reason for hospitalization: patient was admitted in active labor Hospital Course: patient was admitted in active labor on 05/01/2022. She underwent spontaneous vaginal delivery with epidural anesthesia. 24hour course was unremarkable. She remained afebrile. She was up, voiding without difficulty, ambulating, breast-feeding a eating regular diet, and generally without complaints. Time Spent with Patient Time attestation: Total time spent providing and/or coordinating discharge services: Exam Const: General: cooperative, healthy appearing and comfortable Nutritional Appearance: average body habitus Orientation/consciousness: oriented to person, oriented to place and oriented to time HENMT: Head: normal to inspection Neck: Neck: normal visual inspection Resp: Effort & Inspection: normal respiratory effort Cardio: Rate: regular rate Rhythm: regular rhythm Heart sounds: S1 normal heart sound present and S2 normal heart sound present GI: Inspection: normal to inspection ( Fundus firm below the umbilicus) DS: Data Data Completed and Pending Labs on day of discharge: Labs from last 24 hours 05/02/22 05/01/22 05/01/22 05:24 06:20 06:20 WBC RBC Hgb 11.5 L Hct 35.4 L MCV MCH MCHC RDW Plt Count MPV Immature Gran % (Auto) Neut % (Auto) Lymph % (Auto) [place] % (Auto) Eos % (Auto) Baso % (Auto) Lymph # (Auto) [place] # (Auto) Eos # (Auto) Baso # (Auto) Abs Immat Gran (auto) Absolute Neuts (auto) Absolute Nucleated RBC Nucleated RBC % RPR Non-reactive Blood Type A Positive Antibody Screen Negative 05/01/22 06:20 WBC 11.5 H RBC 4.42 Hgb 13.0 Hct 39.2 MCV 88.7 MCH 29.4 MCHC 33.2 RDW 12.8 Plt Count 205 MPV 11.8 H Immature Gran % (Auto) 0.4 Neut % (Auto) 70.5 Lymph % (Auto) 20.6 [place] % (Auto) 7.0 Eos % (Auto) 1.2 Baso % (Auto) 0.3 Lymph # (Auto) 2.36 [place] # (Auto) 0.8 H Eos # (Auto) 0.1 Baso # (Auto) 0.0 Abs Immat Gran (auto) 0.05 H Absolute Neuts (auto) 8.1 H Absolute Nucleated RBC 0.0 Nucleated RBC % 0.0 RPR Blood Type Antibody Screen Discharge Plan Discharge Attending physician on discharge: Agustín Valdez Discharging Clinician: Agustín Valdez Patient Disposition: Home, Self-Care Activity: may shower, may drive after 2 weeks and pelvic rest Diet: heart healthy Wound Care Instructions: follow printed instructions Patient Instructions: Antibiotic Form Stand Alone Forms: General Discharge Information Follow-up/Referrals: Agustín Valdez MD [Physician] - Discharge Medications: No Action No Home Medications Date of admission: 05/01/22 06:02 Primary Care Provider: Elysia Cortez Admitting Provider: Agustín Valdez Attending physician on admission: Agustín Valdez Condition: Stable
[2022-05-02 07:45] VITALS: BP 134/77; PULSE 101; RESP 18; TEMP 36.5; O2SAT 100
--- NOTE | 2022-05-02 07:58 | WPDANLDPN2 ---
Anes-Prog Note L&D Date/Time: 05/02/22 07:58 Comfortable throughout: labor and delivery Neuraxial method: epidural Epidural/Spinal procedure site: tender Neuro status: Neuro function grossly intact. Cardiovascular status: normal Respiratory status: normal Airway patency: baseline Mental status: baseline Post-Op hydration status: normal Vital Signs: Last Vital Signs Temp 36.4 C L 05/02/22 05:17 Pulse 94 05/02/22 05:17 Resp 16 05/02/22 05:17 BP 119/64 05/02/22 05:17 Pulse Ox 99 05/01/22 17:30 O2 Del Method Room Air 05/01/22 17:30 Pain score (VAS): 3/10 I/O: Intake & Output 05/01/22 05/01/22 05/02/22 15:59 23:59 07:59 Intake Total 3000 500 Output Total 60 100 Balance 2940 400 Post-procedural complaints: none Patient feedback: Patient satisfied with anesthetic care.
[2022-05-02] MEDS: DOCUSATE SODIUM 100 MG CAPSULE PO (10:17)
[2022-05-02] MEDS: MULTIVIT/MIN/PREN/FOL AC/IRON TABLET 1 TAB PO (10:17)
[2022-05-02] MEDS: IBUPROFEN 600 MG TABLET PO (10:17)
[2022-05-02 11:22] VITALS: BP 131/72; PULSE 91; RESP 18; TEMP 37; O2SAT 100
--- NOTE | 2022-05-02 13:31 | PC.NURSE ---
[id number] Introductions were made, then consulted with patient to assess needs related to . Mother led the conversation with her?plans to feed?her infant and the?experience so far. Mother has a linear purple coloration on her areola and states it was from an earlier session. Resources provided for inpatient and outpatient services with the feeding sheet, mom/baby guide, business card and name written on the white board. Mother voiced understanding of information and requested assistance since was demonstrating early feeding cues. Discussed with parents how to watch for REM, checking the diaper, unwrapping infant, touching, talking to stimulate every 2.5 hours to breastfeed every 2-3. Discussed the risks and benefits of formula bottle feeding 45-60mls and milk production. Mother works well with her infant with encouragement and education. Encouraged understanding of the benefits of skin to skin (demonstrating unwrapping infant and placing upright on her chest), stimulating with massage touch, changing positions to encourage wakefulness, how to watch for early feeding cues, responsive feeding, feeding on demand (aiming for 8-12 times in 24 hours, about every 2-3 hours), milk production, building/maintaining a milk supply, duration of feeding, signs of adequate intake/output, how to record on the feeding sheet and preventing engorgement. Reviewed positioning and ear, shoulder, hip alignment, supporting the breast to facilitate a deep latch, asymmetrical latch (off-center), leading with the chin with a big, open, wide gape and body close to mother. Infant latched optimally to the right breast in football position. Education given to mother of how to visualize suck/swallow ratios and listen for drinking at the breast. Infant was able to maintain latch without discomfort to mother. Nipple care reviewed with optimal latch and good positioning. Reviewed good handwashing when or touching the breast/nipples to prevent infection. Resources used to facilitate learning were used with the mom and baby guide. Mother voiced understanding of skin to skin, stimulating with massage touch, responsive feedings, talking to infant to encourage if it has been 2 -2.5 hours since the start of the last , to call if infant does not latch, or if there is discomfort with . Resources provided for inpatient/outpatient with business card, feeding sheet and the mom/baby guide. Parents voiced understanding of information, demonstrated learning and will call if there is a request for assistance. Reported to the primary RN.
[2022-05-04 11:19] VITALS: BP 139/77; PULSE 92; RESP 18; TEMP 36.9; O2SAT 100
== END 2022-05-02 19:00 | disposition home or self-care (01) | DRG 807 ==
LOC: ANHLDR 06:06 → ANHOB2 17:08
PROVIDERS: Admitting Provider Obstetrics & Gynecology; PCP Family Medicine; Visit Provider Obstetrics & Gynecology
DX: O69.81X0 Labor and delivery complicated by cord around neck, without compression, not applicable or unspecified (principal); Z37.0 Single live birth; Z3A.40 40 weeks gestation of pregnancy
CPT/HCPCS: 36415; 85014; 85018; 85025; 86592; 86850; 86900; 86901; A9270; J2370; J2590; J2795; J7120

== ENCOUNTER → 2023-01-24 15:35 | Outpatient (CLI) | payer BC, SELFPAY ==
--- NOTE | ~2023-01-24 | XR_ITS ---
EXAM: XR foot RT 2V DATE: 01/24/2023 16:16 HISTORY: M79.676 - Pain in unspecified toe(s) . COMPARISON: 04/24/2017. FINDINGS: Normal mineralization. No fracture or dislocation. No lytic or blastic lesion. Mild hallux valgus and mild degenerative change at the first MTP joint. The remaining joint spaces are maintaine d. No erosion or periosteal change. Soft tissues within normal limits. IMPRESSION: Mild hallux valgus and degenerative change at the first MTP joint. Reviewed, dictated and finalized at location K. 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
== END ==
PROVIDERS: PCP Physician Assistant; Visit Provider Physician Assistant
DX: R20.0 Anesthesia of skin (principal); M20.11 Hallux valgus (acquired), right foot; M19.071 Primary osteoarthritis, right ankle and foot
CPT/HCPCS: 73620

== ENCOUNTER 2023-01-30 15:20 | Outpatient (CLI) | payer BC, SELFPAY ==
--- NOTE | ~2023-01-30 | CT_ITS ---
EXAMINATION: CT brain wo con DATE: 01/30/2023 15:34 INDICATION: R51.9 - Headache, unspecified . TECHNIQUE: Computed tomography (CT) of the head was performed by Dr. Willett's intravenous contrast. The mA was adjusted according to patient size. Iterative reconstruction technique was employed. The dose-length product was 599.57 mGy-cm. COMPARISON: None. FINDINGS: No acute intracranial hemorrhage or extra-axial fluid collection. No hydrocephalus, mass, or herniation. No acute ischemic infarct. Unremarkable dural venous sinus attenuation. No acute osseous abnormality. The aerated spaces are clear. IMPRESSION: No acute intracranial process. Reviewed, dictated and finalized at location K. GER SIX SIGMA
== END 2023-01-30 15:21 ==
PROVIDERS: PCP Physician Assistant; Visit Provider Physician Assistant
DX: R51.9 Headache, unspecified (principal)
CPT/HCPCS: 70450

== ENCOUNTER 2025-01-05 08:49 | Outpatient (CLI) | payer OTHER, SELFPAY ==
--- NOTE | ~2025-01-05 | MM_ITS ---
EXAMINATION: MM screening matlide BI w lan HISTORY: Screening TECHNIQUE: Craniocaudal and mediolateral oblique 3-D tomosynthesis images were obtained and synthetic 2-D images were generated. CAD analysis was submitted and interpreted. COMPARISON: Baseline BREAST PARENCHYMAL COMPOSITION: There are scattered areas of fibroglandular density. FINDINGS: There is no evidence of suspicious mass, calcification, or architectural distortion to suggest malignancy in either breast. IMPRESSION: 1. No mammographic evidence of malignancy. 2. Recommend routine screening mammography in one year. BI-RADS Category 1: Negative Reviewed, dictated and finalized at location B. 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
== END 2025-01-05 08:50 | disposition home or self-care (01) ==
LOC: ANHFOHIMG 08:51
PROVIDERS: PCP Family Medicine; Visit Provider Nurse Practitioner Family
DX: Z12.31 Encounter for screening mammogram for malignant neoplasm of breast (principal); Z80.3 Family history of malignant neoplasm of breast
CPT/HCPCS: 77063; 77067